=== PATIENT | male | born 1950 ===

== ENCOUNTER 2020-09-18 16:43 | Outpatient (NON) | payer MEDICARE, SELFPAY ==
[2020-09-18 17:03] LABS: Basophils Absolute Auto 0.02 K/mm3 (0.00-0.10); Basophils Percent Auto 0.2 % (0.0-1.0); Eosinophils Absolute Auto 0.08 K/mm3 (0.02-0.50); Eosinophils Percent Auto 0.8 % (1.0-6.0); Hematocrit 42.1 % (37.0-46.0); Immature Granulocyte Absolute 0.04 K/mm3 (0.00-0.00); Immature Granulocyte Percent A 0.4 % (0.0-0.0); Lymphocytes Absolute Auto 2.02 K/mm3 (1.10-4.50); Lymphocytes Percent Auto 21.3 % (18.0-42.0); Mean Corpuscular HGB Conc 30.9 g/dL (32.0-36.0); Mean Corpuscular Hemoglobin 32.3 pg (27.0-31.0); Mean Corpuscular Volume 104.7 fL (78.0-102.0); Mean Platelet Volume 10.7 fl (8.7-11.0); Monocytes Absolute Auto 0.81 K/mm3 (0.10-0.90); Monocytes Percent Auto 8.5 % (2.0-11.0); Neutrophils Absolute Auto 6.5 K/mm3 (1.7-7.2); Neutrophils Percent Auto 68.8 % (50.0-70.0); Platelet Count Result 243 K/mm3 (150-420); Red Blood Count 4.02 M/mm3 (4.70-6.10); Red Cell Distribution Width 12.7 % (11.6-14.4); White Blood Count 9.5 K/mm3 (4.8-10.8)
[2020-09-18 17:27] LABS: Alanine Aminotransferase 21 U/L (16-63); Albumin Level 3.9 g/dL (3.4-5.0); Alkaline Phosphatase 87 U/L (46-116); Anion Gap 5 mmol/L (8-16); Aspartate Amino Transferase 18 U/L (15-37); Bilirubin,Total 0.2 mg/dL (0.00-1.00); Blood Urea Nitrogen 15 mg/dL (7-18); Calcium 8.5 mg/dL (8.5-10.1); Carbon Dioxide 39 mmol/L (21-32); Chloride 100 mmol/L (98-108); Cholesterol 172 mg/dL (0-200); Estimated Glomerular Filt Rate > 60; Ferritin 44 ng/mL (26-388); Glucose 99 mg/dL (70-99); HDL Direct 46 mg/dL (40-60); Iron 70 ug/dL (65-175); LDL Cholesterol Calculated 90 mg/dL (<130); Osmolality Calculated 298 mOsm/kg (285-295); Percent Iron Saturation 24 % (12-57); Potassium 4.1 mmol/L (3.5-5.1); Sodium 144 mmol/L (136-145); Total Protein 6.7 g/dL (6.4-8.2); Triglycerides 179 mg/dL (0-150)
[2020-09-18 17:52] LABS: Thyroid Stimulating Hormone Reflex 0.57 u/IU/mL (0.36-3.74)
== END 2020-09-18 16:44 ==
PROVIDERS: Visit Provider Family Medicine
DX: D64.9 Anemia, unspecified (principal); I10 Essential (primary) hypertension
CPT/HCPCS: 36415; 80053; 80061; 82728; 83540; 83550; 84443; 85025

== ENCOUNTER 2021-01-08 15:30 | Outpatient (NON) | payer MEDICARE, SELFPAY ==
[2021-01-08 15:59] LABS: Basophils Absolute Auto 0.04 K/mm3 (0.00-0.10); Basophils Percent Auto 0.4 % (0.0-1.0); Eosinophils Absolute Auto 0.07 K/mm3 (0.02-0.50); Eosinophils Percent Auto 0.7 % (1.0-6.0); Hematocrit 37.7 % (37.0-46.0); Immature Granulocyte Absolute 0.06 K/mm3 (0.00-0.00); Immature Granulocyte Percent A 0.6 % (0.0-0.0); Lymphocytes Absolute Auto 1.39 K/mm3 (1.10-4.50); Lymphocytes Percent Auto 13.3 % (18.0-42.0); Mean Corpuscular HGB Conc 31.8 g/dL (32.0-36.0); Mean Corpuscular Hemoglobin 33.3 pg (27.0-31.0); Mean Corpuscular Volume 104.7 fL (78.0-102.0); Mean Platelet Volume 10.7 fl (8.7-11.0); Monocytes Absolute Auto 0.71 K/mm3 (0.10-0.90); Monocytes Percent Auto 6.8 % (2.0-11.0); Neutrophils Absolute Auto 8.2 K/mm3 (1.7-7.2); Neutrophils Percent Auto 78.2 % (50.0-70.0); Platelet Count Result 264 K/mm3 (150-420); Red Cell Distribution Width 12.4 % (11.6-14.4); White Blood Count 10.5 K/mm3 (4.8-10.8)
[2021-01-08 16:40] LABS: Alanine Aminotransferase 25 U/L (16-63); Alkaline Phosphatase 92 U/L (46-116); Anion Gap 4 mmol/L (8-16); Aspartate Amino Transferase 17 U/L (15-37); Bilirubin,Total 0.3 mg/dL (0.00-1.00); Blood Urea Nitrogen 17 mg/dL (7-18); Calcium 8.4 mg/dL (8.5-10.1); Carbon Dioxide 36 mmol/L (21-32); Chloride 98 mmol/L (98-108); Estimated Glomerular Filt Rate > 60; Folic Acid 9.3 ng/mL (8.6->20); Glucose 88 mg/dL (70-99); Osmolality Calculated 286 mOsm/kg (285-295); Potassium 4.4 mmol/L (3.5-5.1); Sodium 138 mmol/L (136-145); Vitamin B12 355 pg/mL (193-986)
== END 2021-01-08 15:31 ==
LOC: CHSLAB 15:33
PROVIDERS: PCP Family Medicine; Visit Provider Family Medicine
DX: D64.9 Anemia, unspecified (principal); I10 Essential (primary) hypertension
CPT/HCPCS: 36415; 80053; 82607; 82746; 85025

== ENCOUNTER 2021-05-07 14:13 | Outpatient (NON) | payer MEDICARE, SELFPAY ==
[2021-05-07 14:37] LABS: Basophils Absolute Auto 0.03 K/mm3 (0.00-0.10); Basophils Percent Auto 0.3 % (0.0-1.0); Eosinophils Absolute Auto 0.08 K/mm3 (0.02-0.50); Eosinophils Percent Auto 0.8 % (1.0-6.0); Hematocrit 39.3 % (37.0-46.0); Hemoglobin 12.6 g/dL (12.4-15.3); Immature Granulocyte Absolute 0.04 K/mm3 (0.00-0.00); Immature Granulocyte Percent A 0.4 % (0.0-0.0); Lymphocytes Absolute Auto 1.35 K/mm3 (1.10-4.50); Lymphocytes Percent Auto 13.2 % (18.0-42.0); Mean Corpuscular HGB Conc 32.1 g/dL (32.0-36.0); Mean Corpuscular Volume 102.9 fL (78.0-102.0); Mean Platelet Volume 10.5 fl (8.7-11.0); Monocytes Percent Auto 6.8 % (2.0-11.0); Neutrophils Percent Auto 78.5 % (50.0-70.0); Platelet Count Result 228 K/mm3 (150-420); Red Blood Count 3.82 M/mm3 (4.70-6.10); Red Cell Distribution Width 12.2 % (11.6-14.4); White Blood Count 10.2 K/mm3 (4.8-10.8)
[2021-05-07 14:48] LABS: Anion Gap 6 mmol/L (8-16); Blood Urea Nitrogen 20 mg/dL (7-18); Calcium 8.6 mg/dL (8.5-10.1); Carbon Dioxide 38 mmol/L (21-32); Chloride 98 mmol/L (98-108); Estimated Glomerular Filt Rate > 60; Glucose 122 mg/dL (70-99); Osmolality Calculated 297 mOsm/kg (285-295); Sodium 142 mmol/L (136-145)
== END 2021-05-07 14:14 | disposition home or self-care (01) ==
LOC: CHSLAB 14:15
PROVIDERS: PCP Family Medicine; Visit Provider Family Medicine
DX: D64.9 Anemia, unspecified (principal); I10 Essential (primary) hypertension
CPT/HCPCS: 36415; 80048; 85025

== ENCOUNTER 2022-05-10 14:28 | Emergency (ER) | payer MEDICARE, OTHER, SELFPAY ==
--- NOTE | ~2022-05-10 | XR_ITS ---
EXAM: XR hip RT min 2V DATE: 05/10/2022 15:13 HISTORY: hip pain AFTER SITTING ON TOILET FOR 30 MINS/ POS COVID . COMPARISON: None available. FINDINGS: Normal mineralization. No fracture or dislocation. No lytic or blastic lesion. Degenerativ e changes in the lumbar spine SI joints and hips. No erosion or periosteal change. Soft tissues withi n normal limits. IMPRESSION: No acute osseous finding in the right hip. Reviewed, dictated and finalized at location [facility].
--- NOTE | 2022-05-10 14:32 | ED.WEAKNESS ---
HPI - Weakness General Chief complaint: Weakness Stated complaint: ambulance Time Seen by Provider: 05/10/22 14:32 Source: patient, EMS and RN notes reviewed Mode of arrival: EMS Limitations: no limitations History of Present Illness HPI Narrative: patient states he called ambulance mostly for right hip pain. He was diagnosed with COVID 2 days ago. He went in to have a bowel movement and said on the toilet for 30 minutes because then he felt significant pain in his right hip and he was unable to stand up. EMS feels they are bringing him in for generalized weakness. He has a history of anemia and had transfusion of 4 units in the past. He is tachycardic they started him on some fluids for a soft blood pressure. He does not complain of generalized weakness. Only of his right hip pain. MD Complaint: generalized weakness Onset (ago): hour(s) (1) Duration: constant Location: generalized Migration: none Severity: moderate Context: recent illness Associated symptoms: denies other symptoms Related Data Home Medications Medication Instructions Recorded Confirmed arformoterol 15 mcg/2 mL solution 2 ml inhalation QAM AND QHS 05/10/22 05/10/22 for nebulization (Brovana) budesonide 0.25 mg/2 mL suspension 0.25 mg inhalation BID 05/10/22 05/10/22 for nebulization (Pulmicort) Allergies Allergy/AdvReac Type Severity Reaction Status Date / Time Penicillins Allergy Intermediate Unknown Verified 05/10/22 14:51 Review of Systems Review of Systems: All systems reviewed & are unremarkable except as noted in HPI and below PMFSH Past Medical History Medical History Anemia At high risk for complication of severe acute respiratory syndrome coronavirus 2 (SARS-CoV-2) infection BPH (benign prostatic hyperplasia) Chronic dental infection Chronic GERD COPD (chronic obstructive pulmonary disease) Hypertension Muscle spasm Surgical History Surgical History H/O knee surgery History of appendectomy S/P tonsillectomy Social History Social History Smoking status: Former smoker Exam Const: General: no acute distress, alert and ill appearing chronically Nutritional Appearance: well nourished Orientation/consciousness: patient oriented x3 Limitations: no limitations HENMT: Head: normal to inspection Ears: external ears normal General nose exam: Normal external nose present Face and sinus: normal facial exam Mouth: Yes moist mucous membranes Eyes: Conjunctivae: conjunctivae normal Pupils: Equal, round and reactive pupils present EOM: EOMs intact bilaterally Neck: Neck: normal visual inspection Resp: Effort & Inspection: normal respiratory effort Auscultation: clear to auscultation bilaterally Cardio: Rate: tachycardic Rhythm: regular rhythm GI: GI Palp: Yes Soft to palpation and No Tenderness to palpation present (GI) Auscultation: normal bowel sounds Back/Spine/Pelvis: Cervical Spine: cervical ROM normal Thoracic/Lumbar Spine: thoraco-lumbar ROM normal Skin: General skin exam: pallor Rashes: no rashes Neuro: General: patient oriented x3, moves all extremities, no focal motor deficits and CN's II-XI intact bilaterally Speech: normal speech Extrem: General: normal exam except as noted Right lower extremity: hip/thigh Details: tenderness Location: of the hip Location: laterally and anteriorly and of the proximal upper leg and abnormal ROM Details: pain with active ROM during Details: with flexion, to internal rotation and to external rotation Psych: Mental Status: mental status grossly normal Affect: normal affect Attitude: cooperative MDM - Weakness Differential Diagnosis Differential diagnosis: Likely anemia, hypoglycemia and dehydration Lab Data Attestation: I reviewed the patient's lab results. Discharge Plan Discharge Clinical Impression:
[2022-05-10 14:38] VITALS: BP 124/66; PULSE 124; RESP 20; O2SAT 99
[2022-05-10 14:43] VITALS: BP 124/66; PULSE 125; RESP 20; TEMP 37.3; O2SAT 99
[2022-05-10 15:01] LABS: Basophils Absolute Auto 0.01 K/mm3 (0.00-0.10); Basophils Percent Auto 0.1 % (0.0-1.0); Eosinophils Absolute Auto 0.01 K/mm3 (0.02-0.50); Eosinophils Percent Auto 0.1 % (1.0-6.0); Hematocrit 40.3 % (37.0-46.0); Hemoglobin 12.3 g/dL (12.4-15.3); Immature Granulocyte Absolute 0.03 K/mm3 (0.00-0.00); Immature Granulocyte Percent A 0.3 % (0.0-0.0); Lymphocytes Absolute Auto 0.35 K/mm3 (1.10-4.50); Lymphocytes Percent Auto 3.7 % (18.0-42.0); Mean Corpuscular HGB Conc 30.5 g/dL (32.0-36.0); Mean Corpuscular Hemoglobin 31.9 pg (27.0-31.0); Mean Corpuscular Volume 104.7 fL (78.0-102.0); Mean Platelet Volume 10.2 fl (8.7-11.0); Monocytes Percent Auto 5.3 % (2.0-11.0); Neutrophils Absolute Auto 8.5 K/mm3 (1.7-7.2); Neutrophils Percent Auto 90.5 % (50.0-70.0); Platelet Count Result 173 K/mm3 (150-420); Red Blood Count 3.85 M/mm3 (4.70-6.10); White Blood Count 9.4 K/mm3 (4.8-10.8)
[2022-05-10 15:20] LABS: Lactic Acid Reflex 1.4 mmol/L (0.4-2.0)
[2022-05-10 15:29] LABS: Alanine Aminotransferase 37 U/L (16-63); Albumin Level 3.5 g/dL (3.4-5.0); Alkaline Phosphatase 94 U/L (46-116); Anion Gap 8 mmol/L (8-16); Aspartate Amino Transferase 47 U/L (15-37); Bilirubin,Total 0.3 mg/dL (0.00-1.00); Blood Urea Nitrogen 19 mg/dL (7-18); CRP 5.9 mg/dL (0.0-0.9); Calcium 8.5 mg/dL (8.5-10.1); Carbon Dioxide 33 mmol/L (21-32); Chloride 96 mmol/L (98-108); Estimated CRCL calculation 69 ml/min; Estimated Glomerular Filt Rate > 60; Ferritin 332 ng/mL (26-388); Glucose 124 mg/dL (70-99); Magnesium 1.9 mg/dL (1.8-2.4); Osmolality Calculated 287 mOsm/kg (285-295); Potassium 4.2 mmol/L (3.5-5.1); Sodium 137 mmol/L (136-145); Total Protein 7.4 g/dL (6.4-8.2)
[2022-05-10] MEDS: KETOROLAC (*BKC) 60 MG/2 ML VIAL IM (15:55)
[2022-05-10 16:35] VITALS: PULSE 110; RESP 20; TEMP 37.2; O2SAT 99
== END 2022-05-10 16:51 | disposition home or self-care (01) ==
PROVIDERS: Emergency Provider Emergency Medicine; PCP Family Medicine
DX: U07.1 COVID-19 (principal); M25.551 Pain in right hip; K21.9 Gastro-esophageal reflux disease without esophagitis; J44.9 Chronic obstructive pulmonary disease, unspecified; I10 Essential (primary) hypertension; Z87.891 Personal history of nicotine dependence
CPT/HCPCS: 36415; 73502; 80053; 82728; 83605; 83735; 85025; 86140; 96372; 99283; J1885

== ENCOUNTER 2022-05-17 04:52 | Inpatient (IN) | payer MEDICARE, OTHER, SELFPAY ==
[2022-05-17] VITALS (43 sets, daily range): BP systolic 116–165; BP diastolic 59–130; PULSE 92–116; RESP 12–25; TEMP 36.1–36.8; O2SAT 72–99; BMI 34.4
--- NOTE | ~2022-05-17 | CT_ITS ---
EXAMINATION: CTA chest PE protocol DATE: 05/17/2022 07:13 INDICATION: Shortness of breath. Elevated d-dimer. TECHNIQUE: Computed tomography angiography (CTA) of the chest was performed with 100 mL Omnipaque-350 intravenous contrast timed to evaluate the pulmonary arteries. Coronal maximum intensity projection 3D-reconstructions were created by the technologist. Automated exposure control and iterative reconst ruction technique were employed. Exam dose: 1078.01 mGy-cm total exam DLP. COMPARISON: None. FINDINGS: There is diagnostic contrast enhancement of the pulmonary arteries, but motion artifact chau its evaluation of the peripheral pulmonary arteries. No central pulmonary embolus is noted. Normal heart size. No thoracic aortic aneurysm or dissection. No pericardial or pleural effusion. Emphysematous changes are noted. Lung detail is limited due to motion. There is patchy left basilar i nfiltrate or atelectasis with air bronchograms. Degenerative changes of the cervical, thoracic and lumbar spine. No suspicious osteolytic or osteobla stic lesions are identified. Probable mild reactive mediastinal lymphadenopathy. 2 cm left adrenal hypoattenuating lesion, most likely left adrenal adenoma. Hepatic steatosis. IMPRESSION: Limited examination due to motion; no central pulmonary embolus Patchy left lower lobe basilar infiltrate which may be due to pneumonia, with mild reactive mediastin al lymph node prominence Reviewed, dictated and finalized at [facility]. Reviewed, dictated and finalized at location A. IMPRESSION: Limited examination due to motion; no central pulmonary embolus Patchy left lower lobe basilar infiltrate which may be due to pneumonia, with m ild reactive mediastinal lymph node prominence
--- NOTE | ~2022-05-17 | XR_ITS ---
XR chest 1V portable DATE: 05/17/2022 05:26 INDICATION: Shortness of breath. Elevated d-dimer. TECHNIQUE: Portable AP chest on 06/03/2022 0523 hours COMPARISON: 05/30/2017 portable AP chest FINDINGS: There is patchy infiltrate in the lower lung zones, primarily in the left lower lobe. Bilateral hyperinflation suggests COPD. Heart size is likely within normal range considering magnification associated with AP projection. IMPRESSION: Bibasilar infiltrate or atelectasis, greater on the left Reviewed, dictated and finalized at location A.
--- NOTE | 2022-05-17 05:01 | ECG_ITS ---
Measurements Intervals [place] Rate: 121 P: 82 WV: 152 QRS: -82 QRSD: 97 T: 69 QT: 322 QTc: 458 Interpretive Statements SINUS TACHYCARDIA LEFT AXIS DEVIATION INCOMPLETE RIGHT BUNDLE BRANCH BLOCK LOW QRS VOLTAGE- DIFFUSE LEADS INFERIOR INFARCT, AGE INDETERMINATE POOR R WAVE PROGRESSION, CONSIDER ANTERIOR INFARCT BASELINE ARTIFACT- I, III, AVR, AVL, V1-V2, V4-V5 ABNORMAL ECG Electronically Signed On 05-17-2022 6:26:43 CDT by Gee Miles D.O.
--- NOTE | 2022-05-17 05:10 | PC.NURSE ---
Upon arrival to ER, pt is disoriented, lethargic and has noted resp distress, pulling at wires and won't leave O2 in place, pt restless and unable to comprehend following instructions. While pt is placed on NC O2 he becomes unresponsive, monitor showing ST, Spo2 low 70. Pt placed on nonreb mask, SPO2 increased to 90%. Pt will stare blankely at staff and won't answer any questions, Pt becoming slightly more alert p O2 in place. Call placed to family for pt hx and to obtain code status.
[2022-05-17] MEDS: IPRATROPIUM 0.5 MG/ALBUTEROL SULFATE 2.5 MG AMPUL.NEB 3 ML INHALATION ×3 (05:32→19:15)
[2022-05-17] MEDS: ALBUTEROL SULFATE (*SP) INHALER 2 PUFF INHALATION (05:33)
[2022-05-17] MEDS: methylPREDNISolone SOD SUCC 125 MG VIAL IV PUSH (05:45)
--- NOTE | 2022-05-17 05:45 | PC.NURSE ---
Spoke to pts. daughter and per phone, hx obtained per phone consult c family about meds, pts. and daughter, Michelle state pt is DNR. Informed ERP Dr Guzman.
[2022-05-17 05:50] LABS: Base Excess ABG 10.8 mmol/L (0-2); HCO3 ABG 40.7 mmol/L (23-29); Oxygen Saturation ABG 96.6 % (95-97); Oxyhemoglobin 96.3 % (94-100); Total Hemoglobin 12.5 g/dL (12.0-18.0); pH ABG 7.29 (7.35-7.45)
[2022-05-17 05:54] LABS: PCO2 ABG 86.2 mmHg (35-45)
[2022-05-17 05:55] LABS: Device NASAL CANNULA; Modified Allen's Test Pass; Site Drawn LEFT RADIAL
[2022-05-17 06:03] LABS: Basophils Absolute Auto 0.02 K/mm3 (0.00-0.10); Basophils Percent Auto 0.3 % (0.0-1.0); Eosinophils Absolute Auto 0.01 K/mm3 (0.02-0.50); Eosinophils Percent Auto 0.1 % (1.0-6.0); Hematocrit 41.2 % (37.0-46.0); Hemoglobin 11.8 g/dL (12.4-15.3); Immature Granulocyte Absolute 0.14 K/mm3 (0.00-0.00); Immature Granulocyte Percent A 1.8 % (0.0-0.0); Lymphocytes Absolute Auto 0.49 K/mm3 (1.10-4.50); Lymphocytes Percent Auto 6.3 % (18.0-42.0); Mean Corpuscular HGB Conc 28.6 g/dL (32.0-36.0); Mean Corpuscular Hemoglobin 31.3 pg (27.0-31.0); Mean Corpuscular Volume 109.3 fL (78.0-102.0); Mean Platelet Volume 10.7 fl (8.7-11.0); Monocytes Absolute Auto 1.14 K/mm3 (0.10-0.90); Monocytes Percent Auto 14.7 % (2.0-11.0); Neutrophils Absolute Auto 5.9 K/mm3 (1.7-7.2); Neutrophils Percent Auto 76.8 % (50.0-70.0); Platelet Count Result 192 K/mm3 (150-420); Red Blood Count 3.77 M/mm3 (4.70-6.10); Red Cell Distribution Width 13.6 % (11.6-14.4); White Blood Count 7.7 K/mm3 (4.8-10.8)
[2022-05-17 06:19] LABS: D Dimer 0.53 mg/L (0.19-0.50)
[2022-05-17 06:21] LABS: Lactic Acid Reflex 0.9 mmol/L (0.4-2.0)
[2022-05-17 06:22] LABS: Alanine Aminotransferase 53 U/L (16-63); Albumin Level 3.1 g/dL (3.4-5.0); Alkaline Phosphatase 101 U/L (46-116); Anion Gap 7 mmol/L (8-16); Aspartate Amino Transferase 81 U/L (15-37); Bilirubin,Total 0.6 mg/dL (0.00-1.00); Blood Urea Nitrogen 16 mg/dL (7-18); Calcium 8.5 mg/dL (8.5-10.1); Carbon Dioxide 38 mmol/L (21-32); Chloride 98 mmol/L (98-108); Estimated CRCL calculation 87 ml/min; Estimated Glomerular Filt Rate > 60; Glucose 123 mg/dL (70-99); NT Pro B Type Natriuretic Pept 161 pg/mL (0-125); Osmolality Calculated 298 mOsm/kg (285-295); Potassium 4.6 mmol/L (3.5-5.1); Sodium 143 mmol/L (136-145); Total Protein 7.4 g/dL (6.4-8.2); Troponin I 14.3 ng/L (0.00-60.4)
[2022-05-17 06:23] LABS: Add Urine Microscopic? YES; Appearance Urine Clear (Clear); Bilirubin Urine 2+ (Negative); Blood Urine Negative (Negative); Color Urine Yellow (Yellow); Glucose Urine UA Negative (Negative); Ketones Urine 3+ (Negative); Leukocyte Esterase Ur Negative (Negative); Nitrate Urine Negative (Negative); Protein Urine 1+ (Negative); Specific Grav Ur 1.025 (1.010-1.020)
[2022-05-17 06:34] LABS: Amorphous Sediment Urine Few
--- NOTE | 2022-05-17 06:35 | ED.SOB ---
HPI - SOB/Dyspnea General Chief Complaint: Shortness of Breath/Dyspnea Stated Complaint: COVID POSITIVE Source: patient and EMS Mode of arrival: EMS Limitations: altered mental status History of Present Illness HPI Narrative: this is a 71-year-old gentleman that presents via EMS to the emergency department when they were called because patient was having dyspnea, patient has a history of COPD currently a nonsmoker, O2 sats initially in the 70s when EMS arrived and was placed on oxygen, patient also recently diagnosed approximately 1 week ago with COVID and was given treatment with Paxlovid. The patient upon arrival was lethargic and pulling at his IV lines and nasal cannula. Was alert to his name, there is no fever chills no nausea vomiting no abdominal pain. Apparently the patient has not had a follow-up with his primary care physician in a while. Currently his vitals are stable with blood pressure 160/74 heart rate of 113. spoke to family and the patient is a DNR. MD elicited complaint: shortness of breath Onset (ago): hour(s) Context: recent illness Timing: improved Severity: moderate Relieving factors: oxygen Known history of: COPD Associated symptoms: denies other symptoms Related Data Home Medications Medication Instructions Recorded Confirmed arformoterol 15 mcg/2 mL solution 2 ml inhalation QAM AND QHS 05/10/22 05/17/22 for nebulization (Brovana) budesonide 0.25 mg/2 mL suspension 0.25 mg inhalation BID 05/10/22 05/17/22 for nebulization (Pulmicort) Allergies Allergy/AdvReac Type Severity Reaction Status Date / Time Penicillins Allergy Intermediate Unknown Verified 05/10/22 14:51 Review of Systems Review of Systems: All systems reviewed & are unremarkable except as noted in HPI and below PMFSH Past Medical History Medical History Anemia At high risk for complication of severe acute respiratory syndrome coronavirus 2 (SARS-CoV-2) infection BPH (benign prostatic hyperplasia) Chronic dental infection Chronic GERD COPD (chronic obstructive pulmonary disease) Hypertension Muscle spasm Surgical History Surgical History H/O knee surgery History of appendectomy S/P tonsillectomy Social History Social History Smoking status: Former smoker Exam Const: General: ill appearing Nutritional Appearance: obese Limitations: no limitations HENMT: Head: normal to inspection Face and sinus: normal facial exam Eyes: Conjunctivae: conjunctivae normal Pupils: Equal, round and reactive pupils present EOM: EOMs intact bilaterally Neck: Neck: normal visual inspection, no lymphadenopathy and no meningeal signs Chest: Chest palpation & inspection: normal inspection of the chest Resp: Effort & Inspection: normal respiratory effort Auscultation: diminished lung sounds Cardio: Rate: tachycardic Rhythm: regular rhythm GI: GI Palp: Yes Soft to palpation Auscultation: normal bowel sounds Back/Spine/Pelvis: Back: no CVA tenderness Skin: General skin exam: normal color Rashes: no rashes Wounds: no wounds Neuro: General: patient oriented x3, moves all extremities, no meningeal signs and no focal motor deficits Speech: normal speech Extrem: General: normal to inspection, no clubbing, cyanosis or edema and no pedal edema Psych: Mental Status: mental status grossly normal Attitude: cooperative Course Course Emergency Course: Patient's labs ABGs reviewed the patient upon ABG shows that he is around respiratory acidosis partially compensated chronic, had an elevated D-dimer and will order a CTA with currently normal kidney function. The patient was on a non-rebreather and was satting 100% currently the patient is awake alert responds appropriately, denies any chest pain no abdominal pain no fever chills. Patient did receive a DuoNe
[2022-05-17 06:43] LABS: SARS-CoV-2 RNA PCR Positive (Negative)
[2022-05-17 06:50] LABS: Influenza Control Valid (Valid)
--- NOTE | 2022-05-17 07:10 | PC.NURSE ---
Pt resting c NC O2 in place at 3L, back from CT, VSS. Report given to JACE Ryan
--- NOTE | 2022-05-17 07:18 | ED.GENADULT ---
HPI - General Adult General Chief complaint: Shortness of Breath/Dyspnea Stated complaint: COVID POSITIVE Time Seen by Provider: 05/17/22 07:15 Source: patient and EMS Mode of arrival: EMS Limitations: altered mental status History of Present Illness HPI narrative: Freeman is a 71M with a PMH of COPD BPH, HTN, anemia and COVID 19 currently being treated with Paxlovid that presented to the ED with respiratory distress. Care was taken from Dr. Guzman at 0715. Please see his note for further details. He is reportedly DNR/DNI. Related Data Home Medications Medication Instructions Recorded Confirmed arformoterol 15 mcg/2 mL solution 2 ml inhalation QAM AND QHS 05/10/22 05/17/22 for nebulization (Brovana) budesonide 0.25 mg/2 mL suspension 0.25 mg inhalation BID 05/10/22 05/17/22 for nebulization (Pulmicort) Allergies Allergy/AdvReac Type Severity Reaction Status Date / Time Penicillins Allergy Intermediate Unknown Verified 05/10/22 14:51 Review of Systems Review of Systems: All systems reviewed & are unremarkable except as noted in HPI and below PMFSH Past Medical History Medical History Anemia At high risk for complication of severe acute respiratory syndrome coronavirus 2 (SARS-CoV-2) infection BPH (benign prostatic hyperplasia) Chronic dental infection Chronic GERD COPD (chronic obstructive pulmonary disease) Hypertension Muscle spasm Surgical History Surgical History H/O knee surgery History of appendectomy S/P tonsillectomy Social History Social History Smoking status: Former smoker Course Vital Signs Vital signs: Vital Signs Temperature 97.7 F 05/17/22 04:55 Pulse Rate 116 H 05/17/22 04:55 Respiratory Rate 24 H 05/17/22 04:55 Blood Pressure 148/78 H 05/17/22 04:55 Pulse Oximetry 72 L 05/17/22 04:55 Oxygen Delivery Nasal Cannula 05/17/22 04:55 Oxygen Flow Rate 10 05/17/22 04:55 Temperature 98.0 F 05/17/22 07:37 Pulse Rate 105 H 05/17/22 07:37 Respiratory Rate 22 H 05/17/22 07:37 Blood Pressure 165/85 H 05/17/22 07:37 Pulse Oximetry 98 05/17/22 07:37 Oxygen Delivery Nasal Cannula 05/17/22 07:37 Oxygen Flow Rate 3 05/17/22 07:37 Medical Decision Making Vital Signs Vital Signs: Vital Signs Temperature 97.7 F 05/17/22 04:55 Pulse Rate 116 H 05/17/22 04:55 Respiratory Rate 24 H 05/17/22 04:55 Blood Pressure 148/78 H 05/17/22 04:55 Pulse Oximetry 72 L 05/17/22 04:55 Oxygen Delivery Nasal Cannula 05/17/22 04:55 Oxygen Flow Rate 10 05/17/22 04:55 Temperature 98.0 F 05/17/22 07:37 Pulse Rate 105 H 05/17/22 07:37 Respiratory Rate 22 H 05/17/22 07:37 Blood Pressure 165/85 H 05/17/22 07:37 Pulse Oximetry 98 05/17/22 07:37 Oxygen Delivery Nasal Cannula 05/17/22 07:37 Oxygen Flow Rate 3 05/17/22 07:37 Lab Data Result diagrams: 05/17/22 05:51 05/17/22 05:51 Labs: Lab Results 05/17/22 05/17/22 05/17/22 Range/Units 05:51 05:51 05:51 WBC 7.7 (4.8-10.8) K/mm3 RBC 3.77 L (4.70-6.10) M/mm3 Hgb 11.8 L (12.4-15.3) g/dL Hct 41.2 (37.0-46.0) % MCV 109.3 H (78.0-102.0) fL MCH 31.3 H (27.0-31.0) pg MCHC 28.6 L (32.0-36.0) g/dL RDW 13.6 (11.6-14.4) % Plt Count 192 (150-420) K/mm3 MPV 10.7 (8.7-11.0) fl Immature Gran % (Auto) 1.8 H (0.0-0.0) % Neut % (Auto) 76.8 H (50.0-70.0) % Lymph % (Auto) 6.3 L (18.0-42.0) % [place] % (Auto) 14.7 H (2.0-11.0) % Eos % (Auto) 0.1 L (1.0-6.0) % Baso % (Auto) 0.3 (0.0-1.0) % Lymph # (Auto) 0.49 L (1.10-4.50) K/mm3 [place] # (Auto) 1.14 H (0.10-0.90) K/mm3 Eos # (Auto) 0.01 L (0.02-0.50) K/mm3 Baso # (Auto) 0.02 (0.00-0.10) K/mm3 Abs Immat Gran (auto) 0.14 H (0.00-0.00) K/mm3
[2022-05-17 07:20] LABS: Base Excess ABG 9.4 mmol/L (0-2); HCO3 ABG 38.1 mmol/L (23-29); Oxygen Content ABG 15.3 %vol (16.0-22.0); Oxygen Saturation ABG 95.3 % (95-97); PO2 ABG 78.2 mmHg (75-85); Total Hemoglobin 11.4 g/dL (12.0-18.0); pH ABG 7.31 (7.35-7.45)
[2022-05-17 07:21] LABS: Device NASAL CANNULA; Modified Allen's Test Pass; Site Drawn RIGHT RADIAL
--- NOTE | 2022-05-17 07:30 | ED.GENADULT ---
HPI - General Adult General Chief complaint: Shortness of Breath/Dyspnea Stated complaint: COVID POSITIVE Time Seen by Provider: 05/17/22 07:15 Source: patient and EMS Mode of arrival: EMS Limitations: altered mental status History of Present Illness HPI narrative: Freeman is a 71M with a PMH of COPD BPH, HTN, anemia and COVID 19 currently being treated with Paxlovid that presented to the ED with respiratory distress. Care was taken from Dr. Guzman at 0715. Please see his note for further details. He is reportedly DNR/DNI. Related Data Home Medications Medication Instructions Recorded Confirmed arformoterol 15 mcg/2 mL solution 2 ml inhalation QAM AND QHS 05/10/22 05/17/22 for nebulization (Brovana) budesonide 0.25 mg/2 mL suspension 0.25 mg inhalation BID 05/10/22 05/17/22 for nebulization (Pulmicort) Allergies Allergy/AdvReac Type Severity Reaction Status Date / Time Penicillins Allergy Intermediate Unknown Verified 05/10/22 14:51 Review of Systems Review of Systems: ROS unobtainable: Yes unobtainable due to mental status [facility] Past Medical History Medical History Anemia At high risk for complication of severe acute respiratory syndrome coronavirus 2 (SARS-CoV-2) infection BPH (benign prostatic hyperplasia) Chronic dental infection Chronic GERD COPD (chronic obstructive pulmonary disease) Hypertension Muscle spasm Surgical History Surgical History H/O knee surgery History of appendectomy S/P tonsillectomy Social History Social History Smoking status: Former smoker Exam Const: General: confusion and ill appearing acutely Limitations: altered mental status Other: In moderate distress and oriented to person only HENMT: Head: normal to inspection Ears: external ears normal General nose exam: Normal external nose present Face and sinus: normal facial exam Mouth: Yes Normal oral and palatal mucosa present Eyes: Conjunctivae: conjunctivae normal Pupils: Equal, round and reactive pupils present Chest: Other: Barrell Chest Resp: Effort & Inspection: labored, tachypneic and uses accessory muscles Other: Prolonged expiratory phase with diffuse wheezing and poor air movement Cardio: Rate: tachycardic Rhythm: regular rhythm GI: Other: No distension, No rebound tenderness no guarding Skin: General skin exam: normal color Neuro: Other: Oriented to person only. Would speak easily but was very confused. GCS of 14 Extrem: General: normal to inspection Psych: Mental Status: mental status grossly normal Course Course Emergency Course: Upon evaluation of patient he was still confused and repeat ABG showed continued hypercarbic respiratory failure. Will restart Bipap. CXR showed patchy increased density at the bases bilaterally. CT showed no PE. Sonda agree to admission at 0845 Vital Signs Vital signs: Vital Signs Temperature 97.7 F 05/17/22 04:55 Pulse Rate 116 H 05/17/22 04:55 Respiratory Rate 24 H 05/17/22 04:55 Blood Pressure 148/78 H 05/17/22 04:55 Pulse Oximetry 72 L 05/17/22 04:55 Oxygen Delivery Nasal Cannula 05/17/22 04:55 Oxygen Flow Rate 10 05/17/22 04:55 Temperature 96.9 F L 05/17/22 12:00 Pulse Rate 103 H 05/17/22 13:05 Respiratory Rate 24 H 05/17/22 13:05 Blood Pressure 122/68 05/17/22 12:00 Pulse Oximetry 96 05/17/22 13:05 Oxygen Delivery BiPAP 05/17/22 12:50 Oxygen Flow Rate 3 05/17/22 07:37 Medical Decision Making Vital Signs Vital Signs: Vital Signs Temperature 97.7 F 05/17/22 04:55 Pulse Rate 116 H 05/17/22 04:55 Respiratory Rate 24 H 05/17/22 04:55 Blood Pressure 148/78 H 05/17/22 04:55 Pulse Oximetry 72 L 05/17/22 04:55 Oxygen Delivery Nasal Cannula 05/17/22 04:55 Oxygen Flow Rate 10 05/17/22 04:55 [place]
[2022-05-17] MEDS: LORazepam INJ (*CRX) 2 MG/ML VIAL 0.5 MG IV PUSH (08:01)
--- NOTE | 2022-05-17 09:23 | PC.NURSE ---
pt resting quietly. awakens easily. remains oriented x1. resp less labored on bi-pap. admission in progress. family notified of pt status and admission. DNR confirmed with , Maru.
[2022-05-17 09:40] LABS: Base Excess ABG 7.2 mmol/L (0-2); Oxygen Content ABG 17.2 %vol (16.0-22.0); Oxygen Saturation ABG 96.4 % (95-97); Oxyhemoglobin 95.9 % (94-100); PCO2 ABG 65.9 mmHg (35-45); PO2 ABG 83.3 mmHg (75-85); Total Hemoglobin 12.7 g/dL (12.0-18.0); pH ABG 7.34 (7.35-7.45)
[2022-05-17 09:41] LABS: Device BIPAP; Fractional Inspired Oxygen 40 %; Modified Allen's Test Pass; Site Drawn RIGHT RADIAL
[2022-05-17 09:42] LABS: Expiratory Pressure 4 cmH2O; Inspiratory Pressure 18 cmH2O
[2022-05-17] MEDS: LORazepam INJ (*CRX) 2 MG/ML VIAL 1 MG IV PUSH ×2 (10:25→20:27)
--- NOTE | 2022-05-17 10:53 | ADMGEN ---
This patient, Freeman Elmore, was admitted to 2nd Floor Room 212-1. Patient/family oriented to hospital policies and general routines including ID bracelet, bed and alarms, visiting hours, pain management, procedures, bathroom and other care routines, personal items, smoking policy, room service/diet, and visiting hours. Information on how to activate the Rapid Response Team has been discussed. Patient/Family are encouraged to report perceived risks to care and to ask questions if they do not understand what they are told or what they should do.
[2022-05-17] MEDS: DEXAMETHASONE SOD PHOS INJ 4 MG/ML VIAL 6 MG IV PUSH (13:03)
[2022-05-17] MEDS: NICOTINE (*PBKC) 21 MG PATCH 1 PATCH TRANSDERM (13:05)
[2022-05-17] MEDS: SODIUM CHLORIDE 0.9% IV 1,000 ML 100 ML IV CONT (13:07)
[2022-05-17] MEDS: REMDESIVIR 200 MG/NS 250 ML 200 MG/250 ML BAG 250 MG IVPB (13:13)
[2022-05-17 13:31] LABS: Base Excess ABG 12.5 mmol/L (0-2); HCO3 ABG 40.5 mmol/L (23-29); Oxygen Content ABG 13.2 %vol (16.0-22.0); Oxygen Saturation ABG 96.9 % (95-97); Oxyhemoglobin 96.6 % (94-100); PO2 ABG 93.9 mmHg (75-85); Total Hemoglobin 9.6 g/dL (12.0-18.0); pH ABG 7.34 (7.35-7.45)
[2022-05-17 13:36] LABS: Device BIPAP; Modified Allen's Test Pass; Site Drawn RIGHT RADIAL
[2022-05-17 13:37] LABS: PCO2 ABG 76.6 mmHg (35-45)
[2022-05-17 13:38] LABS: Expiratory Pressure 4 cmH2O; Fractional Inspired Oxygen 40 %; Inspiratory Pressure 18 cmH2O
--- NOTE | 2022-05-17 13:38 | PC.NURSE ---
Meg Aguirre, EXAMINATION GRADER/Hospitalist notified that the patient's pCO2 result was 76.6.
[2022-05-17 13:44] LABS: Hematocrit 39.3 % (37.0-46.0); Hemoglobin 11.1 g/dL (12.4-15.3); Immature Platelet Fraction Pct 7.1 % (1.0-7.0); Mean Corpuscular HGB Conc 28.2 g/dL (32.0-36.0); Mean Corpuscular Hemoglobin 31.2 pg (27.0-31.0); Mean Corpuscular Volume 110.4 fL (78.0-102.0); Platelet Count Result 159 K/mm3 (150-420); Red Blood Count 3.56 M/mm3 (4.70-6.10); Red Cell Distribution Width 13.7 % (11.6-14.4); White Blood Count 4.3 K/mm3 (4.8-10.8)
[2022-05-17 13:59] LABS: Prothrombin Time 10.9 Seconds (9.50-12.10)
[2022-05-17 14:00] LABS: Alanine Aminotransferase 45 U/L (16-63); Aspartate Amino Transferase 70 U/L (15-37); Estimated CRCL calculation 89 ml/min; Estimated Glomerular Filt Rate > 60
[2022-05-17 15:00] LABS: Band Neutrophils Percent 0 % (0-6); Lymphocytes Absolute Manual 0.64 K/mm3 (1.1-4.5); Lymphocytes Percent Manual 15 % (18-44); Neutrophils Absolute Manual 3.65 K/mm3 (1.3-6.7); Neutrophils Percent Manual 85 % (46-73); Total Cells Counted 100
[2022-05-17 15:01] LABS: Platelet Estimate Adequate (Adequate)
[2022-05-17 16:52] LABS: Base Excess ABG 8.6 mmol/L (0-2); HCO3 ABG 35.6 mmol/L (23-29); Oxygen Content ABG 15.3 %vol (16.0-22.0); Oxygen Saturation ABG 94.4 % (95-97); Oxyhemoglobin 94.1 % (94-100); PCO2 ABG 62.5 mmHg (35-45); PO2 ABG 69.6 mmHg (75-85); Total Hemoglobin 11.5 g/dL (12.0-18.0); pH ABG 7.37 (7.35-7.45)
[2022-05-17 16:54] LABS: Device BIPAP; Fractional Inspired Oxygen 40 %; Modified Allen's Test Pass; Site Drawn RIGHT RADIAL
[2022-05-17 16:55] LABS: Expiratory Pressure 4 cmH2O; Inspiratory Pressure 20 cmH2O
[2022-05-18] VITALS (11 sets, daily range): BP systolic 119–145; BP diastolic 62–68; PULSE 85–110; RESP 20–24; TEMP 36.3–36.5; O2SAT 89–95
[2022-05-18] MEDS: IPRATROPIUM 0.5 MG/ALBUTEROL SULFATE 2.5 MG AMPUL.NEB 3 ML INHALATION ×3 (00:30→12:16)
[2022-05-18] MEDS: MORPHINE SULFATE (*CRX) 2 MG/ML INJ IV PUSH (01:44)
--- NOTE | 2022-05-18 02:05 | PC.NURSE ---
Pt was distressed and confused. Pt was instructed multiple times to keep the BIPAP mask on as well as the telemetry pads. Pt verbalized understanding, but a few seconds after verbalizing pt would repeat behavior of pulling at the mask. RT came and switched the delivery method after Susan refused to put the BIPAP mask on.
[2022-05-18] MEDS: LORazepam INJ (*CRX) 2 MG/ML VIAL 1 MG IV PUSH ×3 (02:59→16:04)
--- NOTE | 2022-05-18 03:44 | PC.NURSE ---
Pt is no longer pulling at his telemetry wires and oxygen mask after dose of prn ativan. Pt demeanor is more at ease and less abrupt. Side railsx3, bed alarm, and night light on w/the bed in lowest position for pt safety. Call light within reach.
[2022-05-18] MEDS: SODIUM CHLORIDE 0.9% IV 1,000 ML 100 ML IV CONT (04:50)
--- NOTE | 2022-05-18 05:50 | PC.NURSE ---
Pt began coughing copiously; HOB raised vertically so pt is sitting up. Pt was showing signs of distress and calling out for his late . Pt was oriented to the room and after this RN spoke w/Susan he showed less anxiousness. Pt began to ask How long until..., but then fell back to sleep before he could ask his question. Call light is within reach.
[2022-05-18 06:17] LABS: Basophils Absolute Auto 0.01 K/mm3 (0.00-0.10); Basophils Percent Auto 0.1 % (0.0-1.0); Hematocrit 33.4 % (37.0-46.0); Hemoglobin 9.8 g/dL (12.4-15.3); Immature Granulocyte Absolute 0.09 K/mm3 (0.00-0.00); Immature Granulocyte Percent A 1.2 % (0.0-0.0); Lymphocytes Percent Auto 5.4 % (18.0-42.0); Mean Corpuscular HGB Conc 29.3 g/dL (32.0-36.0); Mean Corpuscular Hemoglobin 31.3 pg (27.0-31.0); Mean Corpuscular Volume 106.7 fL (78.0-102.0); Monocytes Percent Auto 6.7 % (2.0-11.0); Neutrophils Absolute Auto 6.4 K/mm3 (1.7-7.2); Neutrophils Percent Auto 86.6 % (50.0-70.0); Platelet Count Result 176 K/mm3 (150-420); Red Blood Count 3.13 M/mm3 (4.70-6.10); White Blood Count 7.4 K/mm3 (4.8-10.8)
[2022-05-18 06:28] LABS: Prothrombin Time 11.3 Seconds (9.50-12.10)
[2022-05-18 06:38] LABS: Alanine Aminotransferase 54 U/L (16-63); Albumin Level 2.6 g/dL (3.4-5.0); Alkaline Phosphatase 88 U/L (46-116); Anion Gap 6 mmol/L (8-16); Aspartate Amino Transferase 79 U/L (15-37); Bilirubin,Total 0.5 mg/dL (0.00-1.00); Blood Urea Nitrogen 22 mg/dL (7-18); Calcium 8.2 mg/dL (8.5-10.1); Carbon Dioxide 37 mmol/L (21-32); Chloride 102 mmol/L (98-108); Estimated CRCL calculation 75 ml/min; Estimated Glomerular Filt Rate > 60; Glucose 144 mg/dL (70-99); Osmolality Calculated 306 mOsm/kg (285-295); Potassium 4.5 mmol/L (3.5-5.1); Sodium 145 mmol/L (136-145); Total Protein 6.3 g/dL (6.4-8.2)
[2022-05-18] MEDS: NICOTINE (*PBKC) 21 MG PATCH 1 PATCH TRANSDERM (07:26)
[2022-05-18] MEDS: DEXAMETHASONE SOD PHOS INJ 4 MG/ML VIAL 6 MG IV PUSH (07:29)
[2022-05-18] MEDS: ENOXAPARIN 40 MG/0.4 ML SYRINGE SUB-Q (07:30)
[2022-05-18 08:09] LABS: HCO3 ABG 36.4 mmol/L (23-29); Oxygen Content ABG 13.8 %vol (16.0-22.0); Oxygen Saturation ABG 92.8 % (95-97); Oxyhemoglobin 92.2 % (94-100); PCO2 ABG 59.1 mmHg (35-45); PO2 ABG 67.3 mmHg (75-85); Total Hemoglobin 10.6 g/dL (12.0-18.0); pH ABG 7.41 (7.35-7.45)
[2022-05-18 08:13] LABS: Device VENTURI MASK; Modified Allen's Test Pass; Site Drawn RIGHT RADIAL
--- NOTE | 2022-05-18 09:25 | PM.IMHP ---
H&P: HPI History of Present Illness Date/Time: 05/18/22 09:25 Chief Complaint: Shortness of breath dyspnea COVID-positive Narrative: This is a 71-year-old male who presented to our emergency department via EMS in respiratory distress patient has a past medical history of COPD, BPH, hypertension, anemia and was recently diagnosed with COVID-19 in prescribed paxlovid. That he did not take. Patient is a poor historian all information obtained from medical records according to medical records patient was satting in the 70s when EMS arrived and was placed on oxygen. Patient tested positive for COVID approximately 1 week ago vital signs 145/64, 106, 24, 97.5, oxygen 93% on 15 L Ventimask W WBCs 4.3 hemoglobin 11.1, hematocrit 39.3, platelets 159, blood gas 7.34, CO2 76.6, O2 93.9, bicarb 40.5, creatinine 0.79, BUN 22, sodium 145, potassium 4.5, glucose 144, AST 81 ALT 51 troponin 14.3, lactic acid 0.9 chest x-ray indicate bilateral infiltration CTA does not indicate pulmonary embolus EKG sinus tach with a heart rate of 121. Patient received olumiant, dexamethasone nebulizer treatment Levaquin. Patient condition has not improved since his admission he is a DNR DNI. Currently waiting for family call back to determine plan of care. We will recommend comfort measures with hospice. Patient has been given sedation and continually pulls off mask. Patient appears very uncomfortable. According to nursing staff attempted to give patient water and he choked off of fluids. We will discuss in further detail making the patient comfort measure and hospice. Patient family members has agreed to make patient hospice he will transition to hospice Review of Systems Review of Systems: ROS unobtainable: Yes unobtainable due to medical condition and unobtainable due to mental status [facility] Past Medical History Medical History Anemia At high risk for complication of severe acute respiratory syndrome coronavirus 2 (SARS-CoV-2) infection BPH (benign prostatic hyperplasia) Chronic dental infection Chronic GERD COPD (chronic obstructive pulmonary disease) Hypertension Muscle spasm Surgical History Surgical History H/O knee surgery History of appendectomy S/P tonsillectomy Social History Social History Smoking status: Former smoker Meds Home Medications and Allergies Home Medications Medication Instructions Recorded Confirmed Type ferrous sulfate 325 mg (65 mg 325 mg PO BID #180 tabs 09/18/20 05/17/22 Rx iron) tablet cholecalciferol (vitamin D3) 125 125 mcg PO DAILY #30 caps 05/07/21 05/17/22 Rx mcg (5,000 unit) capsule ergocalciferol (vitamin D2) 1,250 1,250 mcg PO WEEKLY #14 caps 05/07/21 05/17/22 Rx mcg (50,000 unit) capsule montelukast 10 mg tablet 10 mg PO DAILY #90 tabs 09/12/21 05/17/22 Rx spironolactone 25 mg tablet 25 mg PO BID #180 tabs 09/24/21 05/17/22 Rx tiotropium bromide 18 mcg capsule 1 cap inhalation DAILY #180 09/24/21 05/17/22 Rx with inhalation device (Spiriva inhalations with HandiHaler) terazosin 5 mg capsule 5 mg PO DAILY #90 caps 12/22/21 05/17/22 Rx ipratropium 0.5 mg-albuterol 3 mg 3 ml inhalation BID PRN shortness 01/07/22 05/17/22 Rx (2.5 mg base)/3 mL nebulization of breath or wheezing 90 days #540 soln mL metoprolol tartrate 50 mg tablet 50 mg PO Q12H #180 tabs 03/09/22 05/17/22 Rx albuterol sulfate 90 mcg/actuation See Rx Instructions .Route 04/14/22 05/17/22 Rx aerosol inhaler (ProAir HFA) .COMPLEX #25.5 grams furosemide 40 mg tablet 40 mg PO DAILY 90 days #90 tabs 04/21/22 05/17/22 Rx arformoterol 15 mcg/2 mL solution 2 ml inhalation QAM AND QHS 05/10/22 05/17/22 History for nebulization (Brovana) budesonide 0.25 mg/2 mL suspension 0.25 mg inhalation BID 05/10/22 05/17/22 History for nebulization (Pulmicort) Allergie
--- NOTE | 2022-05-18 10:15 | PC.NURSE ---
Called on-call case management at [facility], spoke with Karma about referral for hospice for patient. Karma states she will contact family about the company they would like to go with.
--- NOTE | 2022-05-18 10:36 | PCCCNOTE ---
Callled by internet security specialist,
--- NOTE | 2022-05-18 10:41 | PCCCNOTE ---
Phone call received from Connor Khan RN [facility], Provide Felipe has spoken with family about hospice and family is anxious to get hospital started and get the patient transitioned home, needing care coordination assistance. Called to MALCOLM Mahoney Spouse with difficulty hearing, Daughter Michelle on the phone who confirms that they are wanting home with hospice as soon as possible. Asked Michelle if there were any hospice agencies that they are familiar with or would like to consult and she does not have any requests. Agreeable to have urgent care reach out to [facility] hospice, advised as unsure how quickly things will move along since it is a holiday and Michelle understands. Advised that [facility] would reach out and or urgent care follow up, Michelle requests to be called at [phone]. Called to machine scallop cutter [facility] Goldstein per Lisbeth scheduled, she advises that their office is open today and we can fax to Elena in the office. Angelita will provide Elena with my phone number. Referral fax'd to Lisbeth. Updated Bill at [facility].
--- NOTE | 2022-05-18 15:28 | PCCCNOTE ---
Addendum entered by Karma Pinto RN 05/18/22 15:29: Late entry: [facility] and provided update as below. Original Note: Late entry: Phone call received from Rivka at [facility] at 1239, states that consents have been signed and she has called equipment company not sure how quickly equipment will arrive. Patient's daughter Michelle will call them as soon as equipment arrives and at that point an ambulance will be arranged.
--- NOTE | 2022-05-18 15:35 | PC.NURSE ---
heraclio from [facility] called to check on equipment status, has not been delivered yet per daughter but rep says it should be any time now
--- NOTE | 2022-05-18 15:55 | PC.NURSE ---
[facility] has no transfer truck today. [facility] called for patient transfer home to hospice, Paged out at [phone]
--- NOTE | 2022-05-18 16:15 | PC.NURSE ---
1610 report given to sam, assisted with transferring pt to stretcher.
--- NOTE | 2022-05-21 12:35 | PC.NURSE ---
Follow up call attempted, no answer
--- NOTE | 2022-05-23 10:55 | PC.NURSE ---
Follow up call attempted, no answer
--- NOTE | 2022-05-29 07:40 | PM.DS ---
DS: Admitting Diagnosis Discharge Date 05/18/22 Admitting Diagnosis Shortness of breath dyspnea COVID-positive DS: Discharge Diagnosis Discharge Diagnosis (1) COVID-19: Code(s): U07.1 - COVID-19 Status: Acute Assessment and Plan: Patient was currently on remdesivir, Levaquin,olumiant with little improvement All medication has been stopped Patient will transition to hospice Patient will be kept comfortable (2) Anemia: Code(s): D64.9 - Anemia, unspecified Status: Chronic Assessment and Plan: Patient will transition to hospice Patient will be kept comfortable (3) Hypertension: Code(s): I10 - Essential (primary) hypertension Status: Acute Assessment and Plan: Patient will transition to hospice Patient will be kept comfortable (4) BPH (benign prostatic hyperplasia): Code(s): N40.0 - Benign prostatic hyperplasia without lower urinary tract symptoms Status: Acute (5) COPD (chronic obstructive pulmonary disease): Code(s): J44.9 - Chronic obstructive pulmonary disease, unspecified Status: Acute Assessment and Plan: Patient will transition to hospice Patient will be kept comfortable DS: Summary Hospital Course Reason for hospitalization: Shortness of breath dyspnea COVID-positive Hospital Course: This is a 71-year-old male who presented to our emergency department via EMS in respiratory distress patient has a past medical history of COPD, BPH, hypertension, anemia and was recently diagnosed with COVID-19 in prescribed paxlovid.? That he did not take.? Patient is a poor historian all information obtained from medical records according to medical records patient was satting in the 70s when EMS arrived and was placed on oxygen.? Patient tested positive for COVID approximately 1 week ago vital signs 145/64, 106, 24, 97.5, oxygen 93% on 15 L Ventimask W WBCs 4.3 hemoglobin 11.1, hematocrit 39.3, platelets 159, blood gas 7.34, CO2 76.6, O2 93.9, bicarb 40.5, creatinine 0.79, BUN 22, sodium 145, potassium 4.5, glucose 144, AST 81 ALT 51 troponin 14.3, lactic acid 0.9 chest x-ray indicate bilateral infiltration CTA does not indicate pulmonary embolus EKG sinus tach with a heart rate of 121.? Patient received olumiant, dexamethasone nebulizer treatment Levaquin.? Patient condition has not improved since his admission he is a DNR DNI.? Currently waiting for family call back to determine plan of care.? We will recommend comfort measures with hospice.? Patient has been given sedation and continually pulls off mask.? Patient appears very uncomfortable.? According to nursing staff attempted to give patient water and he choked off of fluids.? We will discuss in further detail making the patient comfort measure and hospice. Patient family members has agreed to make patient hospice he will transition to hospic Time Spent with Patient Time attestation: Total time spent providing and/or coordinating discharge services: Exam Narrative: GENERAL: Confused HEAD: normocephalic, atraumatic. EYES: PERRL. Sclera clear/white. Vision is grossly intact. EARS: External ears normal, auditory canals clear and without drainage, TMs normal without perforation. Hearing grossly intact. NOSE: External nose normal with no obvious nasal discharge, nares without redness, no rhinorrhea. THROAT: Mucous membranes moist, posterior pharynx clear. NECK: Neck supple, non-tender without lymphadenopathy, masses or thyromegaly. CARDIOVASCULAR: Tachycardic without murmurs, gallops, or rubs. RESPIRATORY: Minutes throughout GASTROINTESTINAL: Abdomen soft, non-tender, nondistended. Bowel sounds are active. No hepato-splenomegaly, or palpable masses. No guarding. SKIN: warm, intact with no suspicious lesions or rash, good texture and turgor. NEURO: awake, alert, and oriented to person, place and time. There were no obvious focal neurologic abnormalities. Steady gait EXTREMITIES: No edema. No c
== END 2022-05-18 16:25 | disposition hospice, home (50) | DRG 179 ==
LOC: CHSED 07:15 → CHS2ND 08:54
PROVIDERS: Emergency Medicine; Nurse Practitioner; Admitting Provider Internal Medicine; Emergency Provider Family Medicine; PCP Family Medicine; Visit Provider Internal Medicine
DX: U07.1 COVID-19 (principal); J44.9 Chronic obstructive pulmonary disease, unspecified; I10 Essential (primary) hypertension; N40.0 Benign prostatic hyperplasia without lower urinary tract symptoms; K21.9 Gastro-esophageal reflux disease without esophagitis; D64.9 Anemia, unspecified; Z51.5 Encounter for palliative care
CPT/HCPCS: 36415; 36600; 71045; 71275; 80053; 81001; 82565; 82805; 83605; 83880; 84450; 84460; 84484; 85025; 85055; 85380; 85610; 87040; 87804; 93005; 94002; 94003; 94640; 94660; 96374; 99285; A9270; C9803; J0248; J1100; J1650; J1956; J2060; J2270; J2930; J7030; Q9967; U0003; U0005